=== PATIENT | female | born 1935 | race Caucasian/White ===

== ENCOUNTER → 2022-07-26 | Outpatient (CLI) | payer BC, MEDICARE ==
[~2022-07-26] MED LIST: ANUC25SU PR; ASPI81TA86 PO; COUM1TAB17 PO; ESTR1TAB PO; ESTR625TA PO; FURO20TA2 PO; GAVICHW5 PO; KLOR1TAB65 PO; LIPI20TA PO; LISI20TA33 PO; METO50TA7 PO; MIRA3350 PO; RANI300C PO; VOLT1GEL15 TD
== END ==
LOC: M RAD 11:51
DX: L97.322 Non-pressure chronic ulcer of left ankle with fat layer exposed (principal)